=== PATIENT | female | born 1990 | race African-American/Black ===

== ENCOUNTER 2021-05-06 13:36 | Emergency (ER) | payer BC, OTHER ==
[~2021-05-06] VITALS: Ht 170.2 cm; Wt 82.0 kg
[2021-05-06] MEDS ORDERED: MORPHINE SULFATE 2 MG/ML CPJ (NOT FOR IM USE) IV ONE ×2 (14:00→16:00)
[2021-05-06] MEDS ORDERED: SODIUM CHLORIDE 0.9% 1,000 ML IV ONE (14:00)
[2021-05-06] MEDS ORDERED: ONDANSETRON HCL 4MG/2ML INJ IM ONE (14:00)
[2021-05-06 14:44] LABS: BASOPHILS % 0.3 % (0.0-2.0); EOSINOPHILS % 7.1 % (0.0-5.0); HEMATOCRIT. 41.6 % (36.0-48.0); HEMOGLOBIN. 13.9 g/dL (12.0-16.0); LYMPHOCYTES % 35.6 % (20.0-50.0); MEAN CORPUSCULAR HEMOGLOBIN 28.8 pg (28.0-32.0); MEAN PLATELET VOLUME 8.9 fl (7.4-10.4); MONOCYTES % 6.2 % (2.0-8.0); NEUTROPHILS % 50.8 % (40.0-76.0); PLATELET 242 x1000/uL (130-400); RED BLOOD CELL COUNT 4.84 mill/uL (4.2-5.4); RED CELL DISTRIBUTION WIDTH 13.5 % (11.6-14.6)
[2021-05-06] MEDS ORDERED: SODIUM CHLORIDE 0.9% IV NR (14:45)
[2021-05-06] MEDS ORDERED: ACETYLCYSTEINE IV NR (14:45)
[2021-05-06 14:47] LABS: CLARITY URINE CLEAR (CLEAR); COLOR URINE YELLOW (YELLOW); KETONES URINE NEGATIVE (NEGATIVE); LEUKOCYTE ESTERASE URINE TRACE (NEGATIVE); NITRITE URINE NEGATIVE (NEGATIVE); OCCULT BLOOD URINE NEGATIVE (NEGATIVE); PROTEIN URINE NEGATIVE (NEGATIVE); SPECIFIC GRAVITY URINE 1.005 (1.005-1.030); UROBILINOGEN URINE 0.2 E.U./dL (0.2-1.0)
[2021-05-06 14:51] LABS: CHLORIDE 108 mEq/L (98-107)
[2021-05-06 14:54] LABS: INR 1.1; PROTHROMBIN TIME 11.4 sec (9.6-11.0)
[2021-05-06 14:55] LABS: ETHANOL BLOOD < 10 mg/dL
[2021-05-06 15:12] LABS: *AMPHETAMINES SCREEN URINE NEGATIVE (NEGATIVE); *BARBITURATES SCREEN URINE NEGATIVE (NEGATIVE); *BENZODIAZEPINES SCREEN URINE NEGATIVE (NEGATIVE); *COCAINE SCREEN URINE NEGATIVE (NEGATIVE)
[2021-05-06 15:14] LABS: METHADONE URINE SCREEN NEGATIVE (NEGATIVE); OPIATES URINE SCREEN NEGATIVE (NEGATIVE); PHENCYCLIDINE URINE SCREEN NEGATIVE (NEGATIVE)
[2021-05-06 15:17] LABS: CANNABINOID URINE SCREEN PRESUMTIVE POSITIVE (NEGATIVE)
[2021-05-06] MEDS ORDERED: IBUP-2030 MT (15:55)
[2021-05-06] MEDS ORDERED: TRAM50TA3 MT (15:55)
[2021-05-06] MEDS ORDERED: AMOX-494 MT (15:55)
[2021-05-06] MEDS ORDERED: KETOROLAC 30MG/ML VIAL IV ONE (16:00)
[2021-05-06 16:14] VITALS: BP 132/62
[2021-05-06] MEDS ORDERED: ACETYLCYSTEINE INJ 4,100 MG in DEXT 5% WATER 500 ML IV NR (16:30)
[2021-05-06] MEDS ORDERED: AMOXICILLIN/POTASSIUM CLAVULANATE 875/125MG TAB PO ONE (18:30)
[2021-05-06] MEDS ORDERED: ACETYLCYSTEINE INJ 8,200 MG in DEXTROSE 5% WATER 1,000 ML IV NR (21:00)
== END 2021-05-06 20:33 | disposition home or self-care (01) ==
LOC: ER 13:36
DX: R79.9 Abnormal finding of blood chemistry, unspecified (principal); K08.89 Other specified disorders of teeth and supporting structures; T39.1X1A Poisoning by 4-Aminophenol derivatives, accidental (unintentional), initial encounter; Y92.89 Other specified places as the place of occurrence of the external cause; I10 Essential (primary) hypertension; Z98.890 Other specified postprocedural states
CPT/HCPCS: 36415; 80053; 80305; 80307; 80320; 80329; 81003; 85025; 85610; 93005; 96361; 96365; 96366; 96368; 96372; 96375; 96376; 99291; J0132; J1885; J2270; J2405; J7030; J7050; J7060; J7070; G0480

== ENCOUNTER 2023-06-23 21:37 | Emergency (ER) | payer MEDICAID, OTHER ==
[~2023-06-23] VITALS: Ht 175.3 cm; Wt 64.0 kg
[~2023-06-23 21:37] MED LIST: AMOX-494 MT; IBUP-2030 MT; TRAM50TA3 MT
[2023-06-23] MEDS: HALOPERIDOL LACTATE 5MG/ML VIAL IM ONE (23:38)
[2023-06-24 00:07] LABS: BASOPHILS % 0.3 % (0.0-2.0); EOSINOPHILS % 0.6 % (0.0-5.0); HEMATOCRIT. 39.2 % (36.0-48.0); HEMOGLOBIN. 13.4 g/dL (12.0-16.0); LYMPHOCYTES % 21.3 % (20.0-50.0); MEAN CORPUSCULAR HEMOGLOBIN 30.5 pg (28.0-32.0); MEAN CORPUSCULAR HGB CONC 34.2 g/dL (31.0-37.0); MEAN PLATELET VOLUME 9.2 fl (7.4-10.4); MONOCYTES % 8.2 % (2.0-8.0); NEUTROPHILS % 69.6 % (40.0-76.0); PLATELET 232 x1000/uL (130-400); RED CELL DISTRIBUTION WIDTH 11.9 % (11.6-14.6); WHITE BLOOD COUNT 9.4 x1000/uL (4.5-11.0)
[2023-06-24 00:18] LABS: CHLORIDE 109 mEq/L (98-107); POTASSIUM 3.6 mEq/L (3.5-5.1); SODIUM 140 mEq/L (136-145)
[2023-06-24 00:19] LABS: CALCIUM 9.2 mg/dL (8.7-10.4); CARBON DIOXIDE 23 mEq/L (21-32)
[2023-06-24 00:24] LABS: CREATININE 0.9 mg/dL (0.6-1.0); GLUCOSE 105 mg/dL (70-105); UREA NITROGEN BLOOD 11 mg/dL (9-23)
[2023-06-24 00:26] LABS: ACETAMINOPHEN < 2 ug/mL (10-30); ALANINE AMINOTRANSFERASE 21 IU/L (10-49); ALBUMIN 4.4 g/dL (3.2-4.8); ASPARTATE AMINOTRANSFERASE 23 IU/L (<34); BILIRUBIN TOTAL 0.5 mg/dL (0.1-1.0); PROTEIN TOTAL 7.8 g/dL (6.0-8.3)
[2023-06-24 00:30] LABS: ETHANOL BLOOD < 10 mg/dL (<10)
[2023-06-24 00:35] LABS: HCG SCREEN NEGATIVE
[2023-06-24] MEDS ORDERED: ACETAMINOPHEN 325MG TABLET PO ONE (07:00)
[2023-06-24 07:04] LABS: CLARITY URINE CLOUDY (CLEAR); COLOR URINE YELLOW (YELLOW); GLUCOSE URINE NEGATIVE (NEGATIVE); KETONES URINE NEGATIVE (NEGATIVE); LEUKOCYTE ESTERASE URINE 2+ (NEGATIVE); NITRITE URINE NEGATIVE (NEGATIVE); OCCULT BLOOD URINE NEGATIVE (NEGATIVE); PH URINE 5.5 (4.5-8.0); PROTEIN URINE NEGATIVE (NEGATIVE); UROBILINOGEN URINE 0.2 E.U./dL (0.2-1.0)
[2023-06-24 07:22] LABS: SQUAMOUS EPITHELIAL CELL URINE 2+ /lpf (RARE/1+)
[2023-06-24 07:26] LABS: BACTERIA URINE TRACE; RBC URINE 0-2 /hpf (0-2)
[2023-06-24 08:29] LABS: *AMPHETAMINES SCREEN URINE NEGATIVE (NEGATIVE); *BARBITURATES SCREEN URINE NEGATIVE (NEGATIVE); *BENZODIAZEPINES SCREEN URINE NEGATIVE (NEGATIVE); *COCAINE SCREEN URINE NEGATIVE (NEGATIVE); CANNABINOID URINE SCREEN NEGATIVE (NEGATIVE); ECSTASY MDMA SCREEN URINE NEGATIVE (NEGATIVE); METHADONE URINE SCREEN NEGATIVE (NEGATIVE); OPIATES URINE SCREEN NEGATIVE (NEGATIVE); PHENCYCLIDINE URINE SCREEN NEGATIVE (NEGATIVE)
[2023-06-24] MEDS: ACETAMINOPHEN 325MG TABLET PO NR (08:57)
[2023-06-24] MEDS: LORAZEPAM 2MG/ML INJ IM ONE (10:42)
[2023-06-24] MEDS: HALOPERIDOL LACTATE 5MG/ML VIAL IM ONE ×2 (10:42→22:00)
[2023-06-24 22:00] VITALS: O2SAT 100
[2023-06-24] MEDS: MIDAZOLAM HCL 2 MG/2 ML VIAL IM ONE (22:00)
[2023-06-25] MEDS: DIPHENHYDRAMINE 50MG/ML VIAL IM PRN (04:32)
[2023-06-25 13:22] LABS: CHLORIDE 106 mEq/L (98-107); POTASSIUM 4.4 mEq/L (3.5-5.1); SODIUM 139 mEq/L (136-145)
[2023-06-25 13:23] LABS: CALCIUM 9.4 mg/dL (8.7-10.4); CARBON DIOXIDE 27 mEq/L (21-32)
[2023-06-25 13:28] LABS: CREATININE 0.8 mg/dL (0.6-1.0); GLUCOSE 86 mg/dL (70-105); UREA NITROGEN BLOOD 12 mg/dL (9-23)
[2023-06-25 13:30] LABS: ALANINE AMINOTRANSFERASE 21 IU/L (10-49); ALBUMIN 4.4 g/dL (3.2-4.8); ASPARTATE AMINOTRANSFERASE 29 IU/L (<34); BILIRUBIN TOTAL 0.4 mg/dL (0.1-1.0); PROTEIN TOTAL 7.4 g/dL (6.0-8.3)
[2023-06-25 15:39] VITALS: BP 125/76; PULSE 78; RESP 18; TEMP 98.1
[2023-06-25] MEDS ORDERED: OLANZAPINE 5MG TABLET ODT PO SCH (19:30)
== END 2023-06-25 14:30 ==
LOC: ER 21:37
DX: R45.851 Suicidal ideations (principal); F23 Brief psychotic disorder; I10 Essential (primary) hypertension; F19.10 Other psychoactive substance abuse, uncomplicated; Z98.890 Other specified postprocedural states; Z20.822 Contact with and (suspected) exposure to COVID-19
CPT/HCPCS: 80053; 80305; 81003; 80307; 80329; 80320; 82962; 84703; 85025; 36415; 96372 ×3; 99285; 87426; J1200; J1630; J2060; J2250; G0480